=== PATIENT | male | born 1980 | race Two or more races ===

== ENCOUNTER 2024-12-24 18:00 | Emergency (ER) | payer OTHER ==
[~2024-12-24] VITALS: Ht 185.4 cm; Wt 93.9 kg
[2024-12-24 20:08] VITALS: BP 143/91; O2SAT 99
[2024-12-24] MEDS ORDERED: FAMOTIDINE/PF 20 MG in 0.9 % SODIUM CHLORIDE 8 ML IV PUSH STA (21:35)
[2024-12-24] MEDS ORDERED: KETOROLAC TROMETHAMINE 30 MG VIAL ONE (21:45)
[2024-12-24] MEDS ORDERED: METHYLPREDNISOLONE SOD SUCC 125 MG VIAL ONE (21:45)
[2024-12-24] MEDS ORDERED: KETOROLAC TROMETHAMINE 30 MG VIAL IV ONE (21:45)
[2024-12-24] MEDS ORDERED: METHYLPREDNISOLONE SOD SUCC 125 MG VIAL IV ONE (21:45)
[2024-12-24] MEDS ORDERED: FAMOTIDINE/PF 20 MG/2 ML VIAL ONE (21:46)
[2024-12-24 22:12] LABS: HEMATOCRIT 41.9 % (39.0-48.0); HEMOGLOBIN 14.6 g/dL (13-16.00); MEAN CELL VOLUME 86.7 fL (80.0-100.00); MEAN CORPUSCULAR HEMOGLOBIN 30.2 pg (27.00-32.0); MEAN CORPUSCULAR HGB CONC 34.9 g/dl (32.0-36.0); PLATELET COUNT 212 K/uL (150-450); RED BLOOD COUNT 4.83 M/uL (4.00-6.00); RED CELL DISTRIBUTION WIDTH 13.6 % (11.5-14.5)
[2024-12-24 22:32] LABS: ALBUMIN 4.1 gm/dL (3.4-5.0); BILIRUBIN TOTAL 2.95 mg/dL (0.3-1.2); CALCIUM 9.6 mg/dL (8.5-10.1); CREATININE SERUM 1.16 mg/dL (0.70-1.30); GFR 68.08; GLOBULINA 3.2 G/DL (2.4-3.5); POTASSIUM 3.87 mEq/L (3.5-5.1); TOTAL PROTEIN 7.3 gm/dL (6.4-8.2)
[2024-12-24] MEDS ORDERED: LEVSIN/SL0.125 MG SL (22:57)
== END 2024-12-24 23:12 | disposition home or self-care (01) ==
LOC: ER 18:02
PROVIDERS: General Practice
DX: R10.84 Generalized abdominal pain (principal)

== ENCOUNTER 2025-01-01 07:48 | Outpatient (CLI) | payer OTHER ==
[~2025-01-01 07:48] MED LIST: LEVSIN/SL0.125 MG SL
[2025-01-04] MEDS ORDERED: DICYCLOMINE HCL10 MG PO (10:57)
== END 2025-01-01 07:52 | disposition home or self-care (01) ==
LOC: TOM 07:48
PROVIDERS: ATTEND Internal Medicine Gastroenterology
DX: R10.9 Unspecified abdominal pain (principal); E03.9 Hypothyroidism, unspecified; K57.92 Diverticulitis of intestine, part unspecified, without perforation or abscess without bleeding

== ENCOUNTER 2025-01-12 07:02 | Inpatient (IN) | payer OTHER ==
[2025-01-04 11:01] VITALS: BP 149/91
[2025-01-04 11:22] LABS: HEMATOCRIT 42.6 % (39.0-48.0); MEAN CELL VOLUME 86.1 fL (80.0-100.00); MEAN CORPUSCULAR HEMOGLOBIN 30.2 pg (27.00-32.0); MEAN CORPUSCULAR HGB CONC 35.1 g/dl (32.0-36.0); PLATELET COUNT 233 K/uL (150-450); RED BLOOD COUNT 4.95 M/uL (4.00-6.00); RED CELL DISTRIBUTION WIDTH 13.6 % (11.5-14.5)
[2025-01-04 11:26] LABS: PH,URINE 5.5 (5.0-8.0); URINE APPEARANCE Clear; URINE BILIRRUBIN Negative (NEGATIVE); URINE BLOOD Negative; URINE COLOR Yellow; URINE GLUCOSE Negative (NEGATIVE); URINE KETONE Negative (NEGATIVE); URINE LEUKOCYTE Negative; URINE NITRATE Negative; URINE PROTEIN Negative (NEGATIVE)
[2025-01-04 11:32] LABS: URINE BACTERIA 9.7 uL (0.0-1933); URINE RBC 3.3 uL (0.0-20.8); URINE WBC 1.9 uL (0.0-23.2)
[2025-01-04 11:34] LABS: URINE CAST 0.14 uL (0.0-1.40); URINE EPITHELIAL CELLS 1.1 uL (0.0-38.8)
[2025-01-04 11:41] LABS: INR 1.05; PARTIAL THROMBOPLASTIN TIME 30.6 SECONDS (22.0-34.0); PROTHROMBIN TIME 11.4 SECONDS (9.0-11.5)
[2025-01-04 12:48] LABS: ALBUMIN 4.5 gm/dL (3.4-5.0); BILIRUBIN TOTAL 2.19 mg/dL (0.3-1.2); CALCIUM 9.5 mg/dL (8.5-10.1); CREATININE SERUM 1.16 mg/dL (0.70-1.30); GFR 68.08; POTASSIUM 4.21 mEq/L (3.5-5.1); TOTAL PROTEIN 7.5 gm/dL (6.4-8.2)
[~2025-01-12] VITALS: Ht 215.9 cm; Wt 93.9 kg
[~2025-01-12 07:02] MED LIST changes: +DICYCLOMINE HCL10 MG PO
[2025-01-12] MEDS ORDERED: CEFAZOLIN SODIUM 1,000 MG VIAL ONE (12:25)
[2025-01-12] MEDS ORDERED: OxyCODONE HCL/APAP UD (PERCOCET) PO PRN (14:45)
[2025-01-12] MEDS ORDERED: POTASSIUM CHLORIDE-0.45% NACL 20 MEQ/1,000 ML PIGGYBAG IV NR (14:45)
[2025-01-12] MEDS ORDERED: MEPERIDINE HCL/PF 50 MG/ML VIAL IM PRN (14:45)
[2025-01-12] MEDS ORDERED: MORPHINE SULFATE 4 MG/ML VIAL IV ONE (14:50)
[2025-01-12] MEDS ORDERED: CEFAZOLIN SODIUM 1,000 MG VIAL IV SCH (17:00)
[2025-01-12 17:08] VITALS: BP 148/82; O2SAT 100
[2025-01-12] MEDS ORDERED: FAMOTIDINE/PF 20 MG/10 ML SYRINGE IV SCH (21:00)
[2025-01-13 01:33] VITALS: BP 130/71; O2SAT 97
[2025-01-13 08:38] VITALS: BP 116/81; O2SAT 99
== END 2025-01-13 13:19 | disposition home or self-care (01) | DRG 399 ==
LOC: CIR.AMB 07:02 → O/R 15:02 → SURG 15:02
PROVIDERS: ADMIT Specialist; ATTEND Specialist
PROC: 0DTJ0ZZ Resection of Appendix, Open Approach (ICD-10-PCS; principal; 2025-01-12 14:30)
DX: K36 Other appendicitis (principal)

== ENCOUNTER 2025-06-27 07:48 | Inpatient (IN) | payer OTHER ==
[~2025-06-27] VITALS: Ht 185.4 cm; Wt 90.7 kg
--- NOTE | 2025-06-27 08:04 | NUR ---
PACIENTE ALERTA Y ORIENTADO X3. REFIERE COMENZAR CON DOLOR ABDOMINAL Y DIARREAS DESDE HACE UNOS WEBSTER QUE NO RAY XAVIER. SE GISELA S/V Y SE UBICA.
[2025-06-27] MEDS ORDERED: ONDANSETRON HCL 2 MG/ML VIAL IV STA (08:44)
[2025-06-27] MEDS ORDERED: FAMOTIDINE/PF 20 MG/2 ML VIAL IV STA (08:45)
[2025-06-27] MEDS ORDERED: 0.9 % SODIUM CHLORIDE 1,000 ML IV STA (08:46)
--- NOTE | 2025-06-27 09:11 | NUR ---
RN CANCEL EDUCA A PACIENTE SOBRE TRATAMIENTO MEDICO EL CUAL REFIERE ENTENDER, SE REALIZA COLECCION DE MUESTRAS Y ADMINISTRACION DE MEDICAMENTOS SHERRILL ORDEN MEDICA.
[2025-06-27 09:17] LABS: BASO % 0.3 % (0.1-1.2); EOS # 0.02 (0.04-0.54); EOS % 0.2 % (0.7-7.0); LYMPH # 1.28 (1.18-3.74); LYMPH % 9.8 % (19.3-53.1); MEAN PLATELET VOLUME 10.20 fl (9.4-12.4); MONO # 0.75 (0.24-0.82); MONO % 5.8 % (4.7-12.5); NEUT # 10.90 (1.56-6.13); NEUT % 83.5 % (34.0-71.1); RED CELL DISTRIBUTION WIDTH 12.4 % (11.6-14.4)
[2025-06-27 09:33] LABS: ALT/SGPT 27.0 U/L (12-78); AST/SGOT 12.0 U/L (15-37); BILIRUBIN TOTAL 3.6 mg/dL (0.3-1.2); BUN CREA RATIO 11.0 (7.0-25.0); CREATININE SERUM 1.22 mg/dL (0.70-1.30); GFR 63.95; GLOBULINA 3.8 G/DL (2.4-3.5); GLUCOSE FASTING 124.0 mg/dL (65-100); OSMOLALITY SERUM 278.0 MOSM/KG (275-295)
[2025-06-27] MEDS ORDERED: PIPERACILLIN/TAZOBACTAM SODIUM 4.5 GM VIAL IV STA (10:15)
[2025-06-27 10:46] LABS: URINE APPEARANCE Clear; URINE BILIRRUBIN Negative (NEGATIVE); URINE BLOOD Trace; URINE COLOR Dark Yellow; URINE GLUCOSE Negative (NEGATIVE); URINE LEUKOCYTE Negative; URINE NITRATE Negative; URINE PROTEIN 30 (NEGATIVE); URINE UROBILINOGEN 1.0 E.U./dl
[2025-06-27 10:49] LABS: URINE BACTERIA 7.2 uL (0.0-1933); URINE EPITHELIAL CELLS 2.1 uL (0.0-38.8); URINE RBC 10.5 uL (0.0-20.8); URINE WBC 2.2 uL (0.0-23.2)
[2025-06-27 11:13] LABS: URINE CAST 0.29 uL (0.0-1.40); URINE KETONE >=160 (NEGATIVE)
[2025-06-27] MEDS ORDERED: KETOROLAC TROMETHAMINE 30 MG VIAL IV STA (14:11)
[2025-06-27] MEDS ORDERED: PIPERACILLIN/TAZOBACTAM SODIUM 2.25 GM VIAL IV STA (15:33)
[2025-06-27] MEDS ORDERED: ONDANSETRON HCL 4 MG in 0.9 % SODIUM CHLORIDE 50 ML IV PRN (19:15)
[2025-06-27] MEDS ORDERED: HYOSCYAMINE SULFATE 0.125 MG TAB.SUBL SL PRN (19:15)
[2025-06-27] MEDS ORDERED: MORPHINE SULFATE 2 MG/ML CARTRIDGE IV PRN (19:15)
[2025-06-27] MEDS ORDERED: ACETAMINOPHEN 325 MG TABLET PO PRN (19:15)
[2025-06-27] MEDS ORDERED: 0.9 % SODIUM CHLORIDE 1,000 ML IV SCH (19:15)
[2025-06-27 20:11] LABS: INR 1.05
[2025-06-27] MEDS ORDERED: CIPROFLOXACIN IN 5 % DEXTROSE 200 ML IV SCH (21:00)
[2025-06-27 22:13] VITALS: BP 154/80; O2SAT 96
[2025-06-28 01:11] VITALS: BP 137/76; O2SAT 97
[2025-06-28 11:01] VITALS: BP 145/83; O2SAT 97
[2025-06-29 03:32] VITALS: BP 143/83; O2SAT 97
[2025-06-29 07:03] LABS: BASO % 0.2 % (0.1-1.2); EOS # 0.03 (0.04-0.54); EOS % 0.3 % (0.7-7.0); LYMPH # 1.42 (1.18-3.74); LYMPH % 12.3 % (19.3-53.1); MEAN PLATELET VOLUME 10.10 fl (9.4-12.4); MONO # 1.05 (0.24-0.82); MONO % 9.1 % (4.7-12.5); NEUT # 8.97 (1.56-6.13); NEUT % 77.8 % (34.0-71.1); RED CELL DISTRIBUTION WIDTH 12.5 % (11.6-14.4)
[2025-06-29 07:47] LABS: ALT/SGPT 36.0 U/L (12-78); AST/SGOT 28.0 U/L (15-37); BILIRUBIN TOTAL 1.71 mg/dL (0.3-1.2); BILIRUBIN,CONJUGATED 0.46 mg/dL (0.0-0.2); BUN CREA RATIO 14.0 (7.0-25.0); CREATININE SERUM 0.98 mg/dL (0.70-1.30); GFR 82.34; GLOBULINA 3.0 G/DL (2.4-3.5); GLUCOSE FASTING 133.0 mg/dL (65-100); OSMOLALITY SERUM 274.0 MOSM/KG (275-295)
[2025-06-29 08:00] VITALS: BP 151/83; O2SAT 97
[2025-06-29] MEDS ORDERED: DEXTROSE 5 % IN WATER 500 ML IV SCH (12:15)
[2025-06-29 15:58] VITALS: BP 147/77; O2SAT 96
[2025-06-29] MEDS ORDERED: ONDANSETRON HCL 2 MG/ML VIAL IV PRN (20:15)
[2025-06-29] MEDS ORDERED: KETOROLAC TROMETHAMINE 30 MG VIAL IV PRN (20:15)
[2025-06-29] MEDS ORDERED: 0.9 % SODIUM CHLORIDE 1,000 ML IV SCH (20:30)
[2025-06-29] MEDS ORDERED: BUPIVACAINE HCL 30 ML VIAL IJ ONE (21:00)
[2025-06-29] MEDS ORDERED: SUGAMMADEX SODIUM 200 MG/2 ML VIAL IV ONE (22:00)
[2025-06-29] MEDS ORDERED: MORPHINE SULFATE 4 MG/ML VIAL IV ONE (22:50)
[2025-06-30] MEDS ORDERED: PIPERACILLIN/TAZOBACTAM SODIUM 3.375 GM VIAL IV SCH
[2025-06-30] MEDS ORDERED: MORPHINE SULFATE 4 MG/ML VIAL IV ONE (01:30)
[2025-06-30 02:46] VITALS: BP 126/78; O2SAT 97
[2025-06-30 05:34] LABS: BASO % 0.2 % (0.1-1.2); EOS # 0.02 (0.04-0.54); EOS % 0.2 % (0.7-7.0); LYMPH # 1.41 (1.18-3.74); LYMPH % 13.4 % (19.3-53.1); MEAN PLATELET VOLUME 9.80 fl (9.4-12.4); MONO # 0.87 (0.24-0.82); MONO % 8.3 % (4.7-12.5); NEUT # 8.13 (1.56-6.13); NEUT % 77.1 % (34.0-71.1); RED CELL DISTRIBUTION WIDTH 12.3 % (11.6-14.4)
[2025-06-30 05:58] LABS: ALT/SGPT 59.0 U/L (12-78); AST/SGOT 66.0 U/L (15-37); BILIRUBIN TOTAL 1.42 mg/dL (0.3-1.2); BUN CREA RATIO 10.0 (7.0-25.0); CREATININE SERUM 0.87 mg/dL (0.70-1.30); GFR 94.47; GLOBULINA 2.8 G/DL (2.4-3.5); GLUCOSE FASTING 111.0 mg/dL (65-100); OSMOLALITY SERUM 277.0 MOSM/KG (275-295)
[2025-06-30 08:00] VITALS: BP 141/60; O2SAT 97
[2025-06-30 23:51] VITALS: BP 113/75; O2SAT 97
[2025-07-01 08:00] VITALS: BP 130/82; O2SAT 98
[2025-07-01 15:30] VITALS: BP 159/96; O2SAT 97
[2025-07-01] MEDS ORDERED: SODIUM CHLORIDE FOR INHALATION 1 VIAL.NEB IH SCH (17:00)
[2025-07-01] MEDS ORDERED: PHENOL 177 ML BOTTLE MM SCH (18:00)
[2025-07-02 01:03] VITALS: BP 138/83; O2SAT 96
[2025-07-02 08:00] VITALS: BP 145/94; O2SAT 95
== END 2025-07-02 16:00 | disposition home or self-care (01) | DRG 418 ==
LOC: ER 07:50 → SURG 19:46
PROVIDERS: General Practice; Surgery; ADMIT Internal Medicine; ATTEND Internal Medicine
PROC: BW21ZZZ Computerized Tomography (CT Scan) of Abdomen and Pelvis (ICD-10-PCS; 2025-06-27)
PROC: BW40ZZZ Ultrasonography of Abdomen (ICD-10-PCS; 2025-06-27)
PROC: BF37ZZZ Magnetic Resonance Imaging (MRI) of Pancreas (ICD-10-PCS; 2025-06-28)
PROC: 0WQF4ZZ Repair Abdominal Wall, Percutaneous Endoscopic Approach (ICD-10-PCS; 2025-06-29)
PROC: 0FT44ZZ Resection of Gallbladder, Percutaneous Endoscopic Approach (ICD-10-PCS; principal; 2025-06-29 18:00)
DX: K80.00 Calculus of gallbladder with acute cholecystitis without obstruction (principal); K90.49 Malabsorption due to intolerance, not elsewhere classified; K82.A1 Gangrene of gallbladder in cholecystitis; K58.9 Irritable bowel syndrome, unspecified; E80.4 Gilbert syndrome; K43.9 Ventral hernia without obstruction or gangrene